=== PATIENT | male | born 1995 | race Caucasian/White ===

== ENCOUNTER 2022-06-02 17:45 | Emergency (ER) | payer OTHER, SELFPAY ==
[2022-06-02 17:48] VITALS: BP 185/77; PULSE 100; RESP 20; TEMP 36.8; O2SAT 98
--- NOTE | 2022-06-02 18:16 | ED.WOUNDLAC ---
HPI - Wound/Laceration General Chief Complaint: Wound/Laceration Stated Complaint: toe lac Time Seen by Provider: 06/02/22 18:15 History of Present Illness HPI narrative: Patient is a 26-year-old male presenting with a laceration to his toe. Patient states that he was walking up some stairs when he slammed his toe into a stair cutting the bottom of his big toe. States he was concerned that it would not be able to heal on its own so he came in for evaluation. He denies any other injuries at this time. States his last Tdap was 8+ years ago. Related Data Allergies Allergy/AdvReac Type Severity Reaction Status Date / Time No Known Allergies Allergy Unknown Unverified 06/02/22 18:07 Review of Systems Review of Systems: All systems reviewed & are unremarkable except as noted in HPI and below Exam Narrative: GENERAL: Well-appearing, well-nourished, and in no acute distress. HEAD: Normocephalic, atraumatic. EYES: PERRLA and EOMI. ENT: Nares clear, no rhinorrhea or epistaxis. Mucous membranes moist. NECK: Supple. CHEST: Clear to auscultation. No respiratory distress. HEART: Regular rate and rhythm. No murmur heard. Normal peripheral pulses. ABDOMEN: Soft, nontender, nondistended, normal active bowel sounds. EXTREMITIES: Normal range of motion. No edema. SKIN: 2 cm curvilinear laceration to the bottom of his right large toe, the edges are well approximated, ROM intact, brisk cap refill, no tendon or vascular involvement. NEURO: No focal deficits. Alert and oriented x3. PSYCH: Normal mood and affect. Course Vital Signs Vital signs: Vital Signs Temperature 98.2 F 06/02/22 17:48 Pulse Rate 100 06/02/22 17:48 Respiratory Rate 20 06/02/22 17:48 Blood Pressure 185/77 H 06/02/22 17:48 Pulse Oximetry 98 06/02/22 17:48 Oxygen Delivery Room Air 06/02/22 17:48 Temperature 98.2 F 06/02/22 17:48 Pulse Rate 100 06/02/22 17:48 Respiratory Rate 20 06/02/22 17:48 Blood Pressure 185/77 H 06/02/22 17:48 Pulse Oximetry 98 06/02/22 17:48 Oxygen Delivery Room Air 06/02/22 17:48 MDM - Wound/Laceration MDM Narrative Medical decision making narrative: Patient is a 26-year-old male with a laceration to his right big toe. Patient is hypertensive, though his vitals are within normal limits. Exam is remarkable for the above. The laceration was irrigated and was able to be repaired with skin glue. The edges were already very well approximated. He does have a thick callus which seems to have provided some protection. States he has not had a Tdap in 5 to 10 years so we will update this. Discussed appropriate supportive care as well as return precautions especially if he develops signs of infection. Advised to follow-up with his PCP. Patient discharged in stable condition. Critical Care Time Critical Care Time Critical Care Time: No Discharge Plan Discharge Clinical Impression: Laceration Patient Disposition: Home, Self-Care Condition: Stable Instructions: Antibiotic Form, Laceration (ED), Skin Adhesive Care (ED) Additional Instructions: Please keep your foot dry for the next 24 hours. Please use Tylenol and ibuprofen for pain control. If you develop worsening pain, spreading redness, development of pus, fevers, or other concerning symptoms arise, please return to the ER. Please follow-up with your primary care provider. Follow-up/Referrals: UNKNOWN,DOCTOR [Primary Care Provider] - Stand Alone Forms: Work/School Release IP
[2022-06-02] MEDS: TETANUS,DIPHTHERIA,AC PERTUSSIS ADULT (0.5 ML) BOOSTRIX IM (18:21)
== END 2022-06-02 19:06 | disposition home or self-care (01) ==
LOC: ANHED 18:25
PROVIDERS: Emergency Provider Emergency Medicine
DX: S91.111A Laceration without foreign body of right great toe without damage to nail, initial encounter (principal); W22.09XA Striking against other stationary object, initial encounter; Z23 Encounter for immunization
CPT/HCPCS: 12001; 90471; 90715; 99282

== ENCOUNTER 2023-11-24 18:10 | Emergency (ER) | payer OTHER, SELFPAY ==
[2023-11-24 18:10] VITALS: BP 165/80; PULSE 103; RESP 18; TEMP 36.1; O2SAT 97
--- NOTE | 2023-11-24 19:13 | ED.WOUNDLAC ---
HPI - Wound/Laceration General Chief Complaint: Wound/Laceration Stated Complaint: finger lac Time Seen by Provider: 11/24/23 18:51 Source: patient Mode of arrival: ambulatory Limitations: no limitations History of Present Illness HPI narrative: this is a 28-year-old male that presents to the emergency department for laceration sustained just prior to arrival. Reports he accidentally dropped a door with glass and cut his right second finger. He is up-to-date on tetanus. Denies decreased range of motion or numbness. Related Data Allergies Allergy/AdvReac Type Severity Reaction Status Date / Time No Known Allergies Allergy Unknown Unverified 06/02/22 18:07 Review of Systems Review of Systems: CONSTITUTIONAL: Denies fever SKIN: Reports laceration MUSCULOSKELETAL: Denies joint pain NEUROLOGIC: Denies numbness All systems reviewed & are unremarkable except as noted in HPI and below PMFSH Past Medical History Medical History (Updated 11/24/23 @ 20:29 by Lexii Aviles PA-C) No active medical problems Social History Social History (Updated 11/24/23 @ 20:29 by Lexii Aviles PA-C) Smoking status: Current every day smoker Exam Narrative: GENERAL: Well-appearing, well-nourished, and in no acute distress. HEAD: Normocephalic, atraumatic. EYES: EOMI. EXTREMITIES: Normal range of motion. No edema. 2.5cm flap laceration to the right second finger into subcutaneous tissue SKIN: Warm, dry, no rash. NEURO: No focal deficits. Alert and oriented x3. PSYCH: Normal mood and affect Course Course Emergency Course: Patient educated on further wound care Vital Signs Vital signs: Vital Signs Temperature 97.0 F L 11/24/23 18:10 Pulse Rate 103 H 11/24/23 18:10 Respiratory Rate 18 11/24/23 18:10 Blood Pressure 165/80 H 11/24/23 18:10 Pulse Oximetry 97 11/24/23 18:10 Oxygen Delivery Room Air 11/24/23 18:10 Temperature 97.0 F L 11/24/23 18:10 Pulse Rate 103 H 11/24/23 18:10 Respiratory Rate 18 11/24/23 18:10 Blood Pressure 165/80 H 11/24/23 18:10 Pulse Oximetry 97 11/24/23 18:10 Oxygen Delivery Room Air 11/24/23 18:10 Procedures Laceration Laceration 1: Date: 11/24/23 Site: hand Side (If applicable): right Size (cm): 2.5 Description: flap Depth: simple, single layer Local Anesthetic: lidocaine 1% Amount of anesthesia used (mL): 3 Pre-repair: wound explored and irrigated ====== Skin Level ====== Skin layer closed with: nylon Size (cm): 4-0 Number of sutures: 5 Technique: simple, interrupted ====== Subcutaneous Layer ====== ====== Muscle Layer ====== ====== Tendon Layer ====== MDM - Wound/Laceration MDM Narrative Medical decision making narrative: Patient presents to the emergency department after a laceration of the right 2nd finger sustained just prior to arrival. He is neurovascularly intact. Reports he is up-to-date on his tetanus vaccination. His wound was irrigated and closed with sutures. He was educated on further wound care. He is to follow up with primary provider. He was given warnings to return to the ER Differential Diagnosis Differential diagnosis: Likely laceration, abrasion and avulsion of skin Critical Care Time Critical Care Time Critical Care Time: No Discharge Plan Discharge Clinical Impression: Laceration Patient Disposition: Home, Self-Care Condition: Stable Instructions: Care For Your Stitches (ED), Laceration (ED) Additional Instructions: Return to the emergency department if you experience fever, redness or swelling of your wound, abnormal drainage from your wound, or any other symptoms that are concerning to you. Apply antibiotic ointment daily. Do not soak the wound. Clean with mild soap and water daily Follow-up with your primary care doctor for suture removal in 10-14 days. Follow-up/Referrals:
[2023-11-24 20:38] VITALS: BP 132/77; PULSE 75; RESP 18; TEMP 36.4; O2SAT 100
== END 2023-11-24 20:41 | disposition home or self-care (01) ==
PROVIDERS: Emergency Provider Physician Assistant
DX: S61.210A Laceration without foreign body of right index finger without damage to nail, initial encounter (principal); W25.XXXA Contact with sharp glass, initial encounter; F17.210 Nicotine dependence, cigarettes, uncomplicated
CPT/HCPCS: 12001; 99282